=== PATIENT | female | born 1985 | race African-American/Black ===

== ENCOUNTER 2017-03-29 08:20 | Emergency (ER) | payer MEDICAID ==
[~2017-03-29] VITALS: Ht 172.7 cm; Wt 54.4 kg
[~2017-03-29 08:20] MED LIST: ALBUTEROL2.5 MG/3 M HHN; AMOXICILLIN500 MG ORAL; BENADRYL50 MG ORAL; CYCLOBENZAPRINE10 MG ORAL; FLONASE1 SPRAYS NASAL; IBUPROFEN600 MG PO; NKM; NORCO 5-325 TA1 EACH ORAL; NORCO 5-325 TA1 EACH PO; PREDNISONE20 MG ORAL; PROMETHAZINE-D118 ML ORAL; RANITIDINE HCL150 MG ORAL; TRAMADOL HCL50 MG ORAL; VALIUM5 MG PO; VICODIN 5-5001 EACH PO; ZITHROMAX250 MG ORAL
[2017-03-29] MEDS ORDERED: NKM (08:29)
--- NOTE | 2017-03-29 08:47 | Emergency Room Report ---
History of Present Illness General Chief Complaint: Abdominal Pain Source: Patient Present Illness HPI Patient present with complaints of left lower suprapubic abdominal pain She reports the pain has been spiking over the past 2 days Denies any vomiting or diarrhea she has developed a headache however Denies any fevers or chills Denies any dysuria frequency Pain is 5/10 Allergies: Coded Allergies: IBUPROFEN (Unverified Allergy, Intermediate, Hives, 01/28/14) KETOROLAC (Unverified Allergy, Intermediate, Hives, 01/28/14) Uncoded Allergies: NSAIDS (Allergy, Unknown, 03/29/17) Patient History Past Medical History: see triage record Pertinent Family History: none Last Menstrual Period: 03/29/17 Now: No Reviewed Nursing Documentation: PMH: Agreed, PSxH: Agreed Nursing Documentation-PMH Past Medical History: No History, Except For Hx Asthma: Yes Hx Gastrointestinal Problems: No - 3 years ago Review of Systems All Other Systems: negative except mentioned in HPI Physical Exam Vital Signs Date Time Temp Pulse Resp B/P (MAP) Pulse Ox O2 Delivery O2 Flow Rate FiO2 03/29/17 08:24 98.1 78 16 121/83 100 Room Air Sp02 EP Interpretation: reviewed, normal General Appearance: well appearing, no apparent distress Head: normocephalic, atraumatic Eyes: bilateral eye PERRL, bilateral eye EOMI ENT: normal pharynx Neck: supple Respiratory: lungs clear Cardiovascular #1: no edema Gastrointestinal: normal inspection, non tender, soft Musculoskeletal: normal inspection Neurologic: alert Skin: normal color, no rash Lymphatic: no adenopathy Medical Decision Making Diagnostic Impression: Primary Impression: Ovarian cyst Additional Impression: Abdominal pain ER Course Review of previous medical records reveals multiple ovarian cyst possible fibroids Patient has multiple differentials including but not limited to ovarian torsion , UTI, diverticulitis Urine sample was obtained Urine sample is clear Patient again is discussed regarding close followup with gynecology For possible medications such as hormone therapy Labs Test 03/29/17 08:29 Urine Color Pale yellow Urine Appearance Clear Urine pH 6 (4.5-8.0) Urine Specific Barnes 1.010 (1.005-1.035) Urine Protein Negative (NEGATIVE) Urine Glucose (UA) Negative (NEGATIVE) Urine Ketones Negative (NEGATIVE) Urine Occult Blood Negative (NEGATIVE) Urine Nitrite Negative (NEGATIVE) Urine Bilirubin Negative (NEGATIVE) Urine Urobilinogen Normal MG/DL (0.0-1.0) Urine Leukocyte Esterase Negative (NEGATIVE) Urine HCG, Qualitative Negative Last Vital Signs Date Time Temp Pulse Resp B/P (MAP) Pulse Ox O2 Delivery O2 Flow Rate FiO2 03/29/17 08:24 98.1 78 16 121/83 100 Room Air Status: improved Disposition: HOME, SELF-CARE Condition: Improved Scripts Acetaminophen With Codeine (T#3) (TYLENOL #3 TAB*) Y Tab 1 TAB ORAL Q8H Y for For Pain, #7 TAB Prov: ARTEMIO POWERS D.O. 03/29/17 Additional Instructions: Patient is provided with the discharge instructions notified to follow up with primary doctor in the next 2-3 days otherwise return to the er with any worsening symptoms. Please note that this report is being documented using [employer] technology. This can lead to erroneous entry secondary to incorrect interpretation by the dictating instrument. ARTEMIO POWERS D.O. Mar 29, 2017 08:47
[2017-03-29 09:00] LABS: APPEARANCE,URINE CLEAR; BILIRUBIN, URINE NEGATIVE (NEGATIVE); COLOR,URINE PALE YELLOW; GLUCOSE, URINE (UA) NEGATIVE (NEGATIVE); KETONES,URINE NEGATIVE (NEGATIVE); LEUKOCYTE ESTERASE ,URINE NEGATIVE (NEGATIVE); NITRITE,URINE NEGATIVE (NEGATIVE); PH,URINE 6 (4.5-8.0); PROTEIN,URINE NEGATIVE (NEGATIVE); UROBILINOGEN,URINE NORMAL MG/DL (0.0-1.0)
[2017-03-29] MEDS ORDERED: ACETAMINOPHEN-1 EAC1 ORAL (09:02)
[2017-03-29 09:14] VITALS: BP 119/80
[2017-03-29 09:17] VITALS: BP 119/80
== END 2017-03-29 09:18 | disposition home or self-care (01) ==
LOC: EMR 08:47
DX: N83.202 Unspecified ovarian cyst, left side (principal); R10.30 Lower abdominal pain, unspecified; J45.909 Unspecified asthma, uncomplicated; Z88.6 Allergy status to analgesic agent
CPT/HCPCS: 81003; 81025; 99283

== ENCOUNTER 2018-06-23 16:26 | Emergency (ER) | payer MEDICAID ==
[~2018-06-23] VITALS: Ht 172.7 cm; Wt 61.2 kg
[~2018-06-23 16:26] MED LIST changes: +ACETAMINOPHEN-1 EAC1 ORAL
[2018-06-23 16:33] VITALS: BP 153/98
[2018-06-23 18:00] LABS: APPEARANCE,URINE CLEAR; BILIRUBIN, URINE NEGATIVE (NEGATIVE); COLOR,URINE PALE YELLOW; GLUCOSE, URINE (UA) NEGATIVE (NEGATIVE); KETONES,URINE NEGATIVE (NEGATIVE); LEUKOCYTE ESTERASE ,URINE NEGATIVE (NEGATIVE); NITRITE,URINE NEGATIVE (NEGATIVE); PH,URINE 7 (4.5-8.0); PROTEIN,URINE NEGATIVE (NEGATIVE); UROBILINOGEN,URINE NORMAL MG/DL (0.0-1.0)
--- NOTE | 2018-06-23 18:00 | NUR ---
ED Nurse Note: PT CAME IN FOR LEFT LOWER ABDOMINAL PAIN SINCE THIS MORNING. DENIES N/V/D. AAO X 4, SKIN IS INTACT, PT. WALKED IN BY HER SELF.
[2018-06-23 18:06] LABS: BASOPHILS % (AUTO) 0.7 % (0.0-2.0); EOSINOPHILS % (AUTO) 2.6 % (0.0-3.0); HEMATOCRIT 40.5 % (37.0-47.0); HEMOGLOBIN 13.4 G/DL (12.0-16.0); LYMPHOCYTES % (AUTO) 19.7 % (20.0-45.0); MEAN CORPUSCULAR VOLUME 94 FL (80-99); MONOCYTES % (AUTO) 5.9 % (1.0-10.0); NEUTROPHILS % (AUTO) 71.1 % (45.0-75.0); PLATELET COUNT 330 K/UL (150-450); RED BLOOD COUNT 4.31 M/UL (4.20-5.40); RED CELL DISTRIBUTION WIDTH 11.6 % (11.6-14.8); WHITE BLOOD COUNT 9.6 K/UL (4.8-10.8)
--- NOTE | 2018-06-23 18:09 | Emergency Room Report ---
History of Present Illness General Chief Complaint: Abdominal Pain Source: Patient Present Illness HPI 32-year-old female patient presents the ER complaining of lower abdominal cramping and vaginal bleeding times 1 day. Reports her last menstrual period was 2 weeks ago. States that she began to experience bleeding symptoms yesterday. Reports small clots noted. Denies tissue. Denies dysuria. Denies vaginal discharge. Denies flank pain. Denies vomiting. Denies diarrhea. Denies fever, chest pain, shortness of breath. Reports does not take any control medications. Denies other aggravating or relieving factors. Reports history of ovarian cyst and wonders if "it ruptured" and it could be related to that. Reports able to pass flatus. Allergies: Coded Allergies: IBUPROFEN (Unverified Allergy, Intermediate, Hives, 06/23/18) KETOROLAC (Unverified Allergy, Intermediate, Hives, 06/23/18) Uncoded Allergies: NSAIDS (Allergy, Unknown, 03/29/17) Patient History Past Medical History: see triage record Last Menstrual Period: JUN 2018 Reviewed Nursing Documentation: PMH: Agreed; PSxH: Agreed Nursing Documentation-PMH Past Medical History: No History, Except For Hx Asthma: Yes Hx Gastrointestinal Problems: No - 3 years ago Review of Systems All Other Systems: negative except mentioned in HPI Physical Exam Vital Signs Date Time Temp Pulse Resp B/P (MAP) Pulse Ox O2 Delivery O2 Flow Rate FiO2 06/23/18 16:33 98.1 83 16 153/98 100 Room Air Sp02 EP Interpretation: reviewed, normal General Appearance: well appearing, no apparent distress, alert, GCS 15, non- toxic Head: normocephalic, atraumatic Eyes: bilateral eye normal inspection, bilateral eye PERRL ENT: hearing grossly normal, normal pharynx, no angioedema, normal voice, uvula midline, moist mucus membranes Neck: full range of motion Respiratory: lungs clear, normal breath sounds, no rhonchi, no respiratory distress, no accessory muscle use, no wheezing, speaking full sentences Cardiovascular #1: regular rate, rhythm, no edema Gastrointestinal: non tender, soft, no mass, non-distended, no guarding, no rebound Genitourinary: no CVA tenderness Musculoskeletal: back normal, digits/nails normal, gait/station normal, normal range of motion, non-tender Neurologic: alert, oriented x3, responsive, motor strength/tone normal, sensory intact Psychiatric: mood/affect normal Skin: no rash Medical Decision Making PA Attestation Dr. Dawson is my supervising Physician whom patient management has been discussed with. Diagnostic Impression: Primary Impression: Hemorrhagic cyst of ovary ER Course Pt presents to ED c/o vaginal bleeding/spotting. DDX considered but are not limited to threatened , incomplete , complete , ectopic, UTI, septic , fibroids, dysfunctional uterine bleeding, STI, ovarian torsion, anemia, menstrual cramps. Negative Rovsing, no fever, low suspicion for appendicitis, does not require CT at this time. VITAL SIGNS are WNL, patient is afebrile Pelvic exam deferred. Ordered CBC, CMP, Type and Screen, UA, UCG, bHCG, IV NS and pelvic US. Tylenol for pain control. ER COURSE: Provided with Tylenol and IV fluids. CBC and CMP unremarkable, no anemia, H&H normal, no elevation in WBCs or LFTs. UA results unremarkable, low suspicion for UTI. Urine negative BetaHCG <1 Rh antibody negative Blood type B positive Results discussed with patient. Pelvic US possible hemorrhagic cyst, trace free fluid, no torsion per US technician automatic.. Follow-up with [facility] specialist. Indeterminate 4.8 cm complex left adnexal cystic structure with homogeneous low- level internal echoes has imaging features suggestive of an endometrioma. Consider pelvic ultrasound follow-up in 6-12 weeks to reassess. Then, if unchanged and not surgically removed, yearly ultrasound follow-up.Trace nonspecific pelvic free fluid is likely physiologic. Discuss results with the patient. Provided patient with copy of results. Instructed patient to followup with PCP and discuss results of report with patient, discuss need for further treatment and referral. Patient resting comfortably, in no acute distress, nontoxic appearing. Patient reports pain symptoms resolved since onset. Informed patient to take Tylenol only for pain symptoms, do not take Motrin/ Ibuprofen. ER precautions given. DISCHARGE: -Rx provided for Tylenol for pain At this time pt. is stable for d/c to home. At this time patient is resting comfortably, in no acute distress, nontoxic appearing, smiling and talking without difficulty. Will provide printed patient care instructions, and any necessary prescriptions. Patient instructed to follow with OBGYN for further treatment and referral as needed. Care plan and follow up instructions have been discussed with the patient prior to discharge. Patient reports understanding and agreement to treatment plan. Patient questions asked and answered. ER precautions given, patient instructed to return to ER immediately for any new or worsening of symptoms. - Please note that this Emergency Department Report was dictated using [employer] Systemsprofessor of literature technology software, occasionally this can lead to erroneous entry secondary to interpretation by the dictation equipment. Labs Test 06/23/18 17:30 White Blood Count 9.6 K/UL (4.8-10.8) Red Blood Count 4.31 M/UL (4.20-5.40) Hemoglobin 13.4 G/DL (12.0-16.0) Hematocrit 40.5 % (37.0-47.0) Mean Corpuscular Volume 94 FL (80-99) Mean Corpuscular Hemoglobin 31.1 PG (27.0-31.0) Mean Corpuscular Hemoglobin Concent 33.0 G/DL (32.0-36.0) Red Cell Distribution Width 11.6 % (11.6-14.8) Platelet Count 330 K/UL (150-450) Mean Platelet Volume 6.6 FL (6.5-10.1) Neutrophils (%) (Auto) 71.1 % (45.0-75.0) Lymphocytes (%) (Auto) 19.7 % (20.0-45.0) Monocytes (%) (Auto) 5.9 % (1.0-10.0) Eosinophils (%) (Auto) 2.6 % (0.0-3.0) Basophils (%) (Auto) 0.7 % (0.0-2.0) Urine Color Pale yellow Urine Appearance Clear Urine pH 7 (4.5-8.0) Urine Specific Dawson 1.005 (1.005-1.035) Urine Protein Negative (NEGATIVE) Urine Glucose (UA) Negative (NEGATIVE) Urine Ketones Negative (NEGATIVE) Urine Blood 5+ (NEGATIVE) Urine Nitrite Negative (NEGATIVE) Urine Bilirubin Negative (NEGATIVE) Urine Urobilinogen Normal MG/DL (0.0-1.0) Urine Leukocyte Esterase Negative (NEGATIVE) Urine RBC 2-4 /HPF (0 - 2) Urine WBC 0-2 /HPF (0 - 2) Urine Squamous Epithelial Cells Few /LPF (NONE/OCC) Urine Bacteria Few /HPF (NONE) Urine HCG, Qualitative Negative (NEGATIVE) Sodium Level 138 MMOL/L (136-145) Potassium Level 4.4 MMOL/L (3.5-5.1) Chloride Level 102 MMOL/L (98-107) Carbon Dioxide Level 29 MMOL/L (21-32) Anion Gap 7 mmol/L (5-15) Blood Urea Nitrogen 9 mg/dL (7-18) Creatinine 0.8 MG/DL (0.55-1.30) Estimat Glomerular Filtration Rate > 60 mL/min (>60) Glucose Level 97 MG/DL (74-106) Calcium Level 9.3 MG/DL (8.5-10.1) Total Bilirubin 0.4 MG/DL (0.2-1.0) Aspartate Amino Transf (AST/SGOT) 21 U/L (15-37) Alanine Aminotransferase (ALT/SGPT) 25 U/L (12-78) Alkaline Phosphatase 90 U/L (46-116) Total Protein 8.7 G/DL (6.4-8.2) Albumin 4.0 G/DL (3.4-5.0) Globulin 4.7 g/dL Albumin/Globulin Ratio 0.9 (1.0-2.7) Lipase 282 U/L (73-393) Human Chorionic Gonadotropin, Quant < 1 mIU/mL (1-6) CT/MRI/US Diagnostic Results CT/MRI/US Diagnostic Results : Imaging Test Ordered: US Impression No sonographic findings to suggest ovarian torsion. Indeterminate 4.8 cm complex left adnexal cystic structure with homogeneous low- level internal echoes has imaging features suggestive of an endometrioma. Consider pelvic ultrasound follow-up in 6-12 weeks to reassess. Then, if unchanged and not surgically removed, yearly ultrasound follow-up. Trace nonspecific pelvic free fluid is likely physiologic. Uterus and endometrium are unremarkable. Last Vital Signs Date Time Temp Pulse Resp B/P (MAP) Pulse Ox O2 Delivery O2 Flow Rate FiO2 06/23/18 16:33 98.1 83 16 153/98 100 Room Air Status: improved Disposition: HOME, SELF-CARE Condition: Stable Scripts Acetaminophen* (TYLENOL EXTRA STRENGTH*) 500 Mg Tablet 500 MG ORAL Q8H PRN for Prn Headache/Temp > 101, #30 TAB 0 Refills Prov: Felix Soliz 06/23/18 Patient Instructions: Ovarian Cyst, [id number] Additional Instructions: Followup with OBGYN and PCP in 1-2 days. Discuss need for repeat US. discuss US results with OBGYN and PCP. Take medications as directed. Take Tylenol for pain. Patient questions asked and answered. ER precautions given, patient instructed to return to ER immediately for any new or worsening of symptoms including but not limited to chest pain, SOB, intractable vomiting, profuse vaginal bleeding, abdominal pain. Blood type B positive Felix Soliz Jun 23, 2018 18:09
[2018-06-23 18:13] LABS: ANION GAP 7 mmol/L (5-15); BLOOD UREA NITROGEN 9 mg/dL (7-18); CALCIUM 9.3 MG/DL (8.5-10.1); CARBON DIOXIDE 29 MMOL/L (21-32); CHLORIDE 102 MMOL/L (98-107); CREATININE 0.8 MG/DL (0.55-1.30); POTASSIUM 4.4 MMOL/L (3.5-5.1); SODIUM 138 MMOL/L (136-145)
[2018-06-23 18:17] LABS: ALANINE AMINOTRANSFERASE 25 U/L (12-78); ALBUMIN/GLOBULIN RATIO 0.9 (1.0-2.7); ALKALINE PHOSPHATASE 90 U/L (46-116); ASPARTATE AMINO TRANSFERASE 21 U/L (15-37); BILIRUBIN,TOTAL 0.4 MG/DL (0.2-1.0)
[2018-06-23 18:54] VITALS: BP 122/84
--- NOTE | 2018-06-23 19:10 | NUR ---
HAND-OFF: Report given to RONNELL GOMEZ
--- NOTE | 2018-06-23 19:11 | NUR ---
ED Nurse Note: pt report received, pt is aox4, vss at the moment, pt skin intact, awaiting d/c orders per ermd
[2018-06-23 19:19] VITALS: BP 140/98
[2018-06-23] MEDS ORDERED: TYLENOL EXTRA500 MG ORAL (19:25)
[2018-06-23 19:34] VITALS: BP 140/98
--- NOTE | 2018-06-23 19:34 | NUR ---
ED Nurse Note: PT HAS BEEN D/C PER ERMD ORDER. PT IS AOX 4, DC AND PRESCRIPTION INCSTRUCTIONS GIVEM PT WAS ABLE TO VERBALIZE UNDERSTANDING. PT ID BAND AND IV SITE DISCONTINUED WITHOUT COMPLICATIONS. PT HAS STEADY GAIT, PT TOOK ALL BELONGINGS.
--- NOTE | 2018-06-24 12:57 | Diagnostic Imaging Report ---
Indication:Lower abdominal and pelvic pain Technique: Grayscale and duplex Doppler imaging of the pelvis performed utilizing a transabdominal and endovaginal scan. Comparison: None Findings: The size, contour, and configuration of the uterus is within normal limits. The endometrium is uniformly echogenic and normal in thickness. Endometrial thickness is 12 mm. Uterus measures 10 x 6.7 x 5.4 cm. The ovaries appear normal bilaterally with good dopplerable blood flow. There is no significant free fluid identified. There is a 4.8 cm cystic lesion demonstrated within the left ovary with low-level internal echoes probably a hemorrhagic cyst. Suggest six-week follow-up exam at another phase of the menstrual cycle. IMPRESSION: Complex cystic lesion left ovary. Recommend six-week follow-up. Negative exam otherwise
== END 2018-06-23 19:34 | disposition home or self-care (01) ==
LOC: EMR 18:17
DX: N83.202 Unspecified ovarian cyst, left side (principal)
CPT/HCPCS: 36415; 76830; 76856; 80053; 81003; 81025; 83690; 84702; 85025; 86850; 86900; 86901; 96360; 99284

== ENCOUNTER 2020-02-01 07:11 | Emergency (ER) | payer MEDICAID ==
[~2020-02-01] VITALS: Ht 172.7 cm; Wt 63.5 kg
[~2020-02-01 07:11] MED LIST changes: +TYLENOL EXTRA500 MG ORAL
--- NOTE | 2020-02-01 07:28 | NUR ---
ED Nurse Note: Patient walked in to ER limping c/o pain to right hip radiating down to right leg after sitting in a car wrong last night. Patient AAO x4, VSS at this time.
[2020-02-01] MEDS ORDERED: Methocarbamol 750mg tab ORAL ONE ×2 (07:34→07:45)
[2020-02-01] MEDS ORDERED: Acetaminophen 500mg (ES) tab ORAL ONE ×2 (07:34→07:45)
[2020-02-01] MEDS ORDERED: LIDODERM700 M1 TOPIC (07:42)
[2020-02-01] MEDS ORDERED: ROBAXIN-750750 MG PO (07:42)
[2020-02-01] MEDS ORDERED: TYLENOL EXTRA500 MG ORAL (07:42)
[2020-02-01 07:56] VITALS: BP 127/84
--- NOTE | 2020-02-01 07:57 | NUR ---
ED Nurse Note: Pt cleared by health care Provider for discharge. DC instructions/prescription was given and explained to pt and verbalized understanding of teachings. All medical deviecs such as ID band removed. Pt is AAO x4, ambulatory and left with all personal belongings.
--- NOTE | 2020-02-01 09:13 | Emergency Room Report ---
History of Present Illness General Chief Complaint: Lower Extremity Injury Source: Patient Present Illness HPI 34-year-old female presents the ED complaining of right hip pain. States that last night when she was getting into the car she may have tweaked her leg and she is felt sudden pain to her right leg. Pain is dull, 10 out of 10, nonradiating. States she is able to walk but with pain. Denies any other injuries. No other aggravating relieving factors. Denies any other associated symptoms Allergies: Coded Allergies: IBUPROFEN (Unverified Allergy, Intermediate, Hives, 06/23/18) KETOROLAC (Unverified Allergy, Intermediate, Hives, 06/23/18) Uncoded Allergies: NSAIDS (Allergy, Unknown, 03/29/17) COVID-19 Screening Contact w/high risk pt: No Experienced COVID-19 symptoms?: No COVID-19 Testing performed MANAGER PRICING: No Patient History Past Medical History: asthma Pertinent Family History: none Social History: Denies: smoking, alcohol use, drug use Last Menstrual Period: 12/28/19 Now: No Immunizations: UTD Reviewed Nursing Documentation: PMH: Agreed; PSxH: Agreed Nursing Documentation-PMH Past Medical History: No History, Except For Hx Asthma: Yes Hx Gastrointestinal Problems: No - 3 years ago Review of Systems All Other Systems: negative except mentioned in HPI Physical Exam Vital Signs Date Time Temp Pulse Resp B/P (MAP) Pulse Ox O2 Delivery O2 Flow Rate FiO2 02/01/20 07:20 97.9 80 17 127/84 (98) 99 Room Air Sp02 EP Interpretation: reviewed, normal General Appearance: alert, GCS 15, non-toxic, mild distress Head: normocephalic, atraumatic Eyes: bilateral eye normal inspection, bilateral eye PERRL ENT: hearing grossly normal, normal pharynx, no angioedema, normal voice Neck: full range of motion, supple/symm/no masses Respiratory: chest non-tender, lungs clear, normal breath sounds, speaking full sentences Cardiovascular #1: regular rate, rhythm, no edema Cardiovascular #2: 2+ carotid (R), 2+ carotid (L), 2+ radial (R), 2+ radial (L) , 2+ dorsalis pedis (R), 2+ dorsalis pedis (L) Gastrointestinal: normal bowel sounds, non tender, soft, non-distended, no guarding, no rebound Rectal: deferred Genitourinary: normal inspection, no CVA tenderness Musculoskeletal: back normal, normal range of motion, gait/station normal, tender - R hip pain. full ROm noted Neurologic: alert, motor strength/tone normal, oriented x3, sensory intact, responsive, speech normal Psychiatric: judgement/insight normal, memory normal, mood/affect normal, no suicidal/homicidal ideation Reflexes: 3+ bicep (R), 3+ bicep (L), 3+ tricep (R), 3+ tricep (L), 3+ knee (R) , 3+ knee (L) Lymphatic: no adenopathy Medical Decision Making Diagnostic Impression: Primary Impression: Strain of hip flexor Qualified Codes: S76.011A - Strain of muscle, fascia and tendon of right hip, initial encounter ER Course Hospital Course 34-year-old female presents to ED complaining of R hip pain no trauma Differential diagnoses include: Fracture, dislocation, sprain, contusion, bursitis Clinical course Patient placed on stretcher. After initial history, physical exam reveals a female in mild distress. There is some tenderness to the hip flexor on the right. Pain with external rotation. No crepitus. No evidence of hernia. I discussed findings with patient. No signs of fall or trauma. Did not believe imaging required at this time. Given Tylenol, Robaxin, Lidoderm in ED. Will discharge home on similar medications. Safe for discharge close outpatient follow-up. I will provide Ortho referral Diagnosis - strain of hip flexor stable and discharged to home with prescription for Tylenol, robaxin, lidoderm. Followup with PMD/ortho. Return to ED if symptoms recur or worsen Last Vital Signs Date Time Temp Pulse Resp B/P (MAP) Pulse Ox O2 Delivery O2 Flow Rate FiO2 02/01/20 07:56 97.9 17 127/84 99 Room Air 02/01/20 07:20 80 Status: improved Disposition: HOME, SELF-CARE Condition: Stable Scripts Lidocaine Patch* (Lidoderm Patch*) 1 Each Adh..patch 1 PATCH TOPIC DAILY, #7 PATCH 0 Refills Patch(es) may remain in place for up to 12 hours in any 24-hour period. Prov: Reymundo Bonilla MD 02/01/20 Methocarbamol* (ROBAXIN-750*) 750 Mg Tablet 750 MG PO TID, #21 TAB 0 Refills Prov: Reymundo Bonilla MD 02/01/20 Acetaminophen* (TYLENOL EXTRA STRENGTH*) 500 Mg Tablet 500 MG ORAL Q8H PRN for Prn Headache/Temp > 101, #30 TAB 0 Refills Prov: Reymundo Bonilla MD 02/01/20 [facility] 24 hour /7 days a week by Appointment Only [address] [facility] [address] [address] Departure Forms: Return to Work Return to Work Date: Feb 03, 2020 Work Restrictions: No Prolonged Standing Patient Instructions: Hip Pain Reymundo Bonilla MD Feb 01, 2020 09:13
== END 2020-02-01 07:57 | disposition home or self-care (01) ==
LOC: EMR 07:38
DX: S76.011A Strain of muscle, fascia and tendon of right hip, initial encounter (principal); X58.XXXA Exposure to other specified factors, initial encounter; Y92.9 Unspecified place or not applicable; Z88.6 Allergy status to analgesic agent
CPT/HCPCS: 99282